=== PATIENT | male | born 1960 ===

== ENCOUNTER 2018-11-09 10:15 | Inpatient (IN) | payer OTHER ==
[2018-11-09 10:19] VITALS: BMI 29.0
[2018-11-09 11:19] LABS: BASO # 0.03 K/mm3 (0.0-2.0); BASO % 0.4 % (0.0-3.0); EOS # 0.5 (0.0-0.7); EOS % 6.6 % (1.5-5.0); GRAN # 4.05 (1.4-6.5); GRAN % 52.8 % (50.0-68.0); HEMOGLOBIN 12.6 g/dL (14.0-18.0); LYMPH # 2.4 (1.2-3.4); LYMPH % 31.6 % (22.0-35.0); MEAN CELL VOLUME 90.8 fl (80.0-105.0); MEAN CORPUSCULAR HEMOGLOBIN 30.5 pg (25.0-35.0); MEAN CORPUSCULAR HGB CONC 33.6 g/dl (31.0-37.0); MEAN PLATELET VOLUME 10.1 fl (7.0-11.0); MONO # 0.7 (0.1-0.6); MONO % 8.6 % (1.0-6.0); RBC 4.13 10^6/uL (3.5-6.1); RED CELL DISTRIBUTION WIDTH 12.8 % (11.5-14.5); WHITE BLOOD COUNT 7.7 10^3/uL (4.5-11.0)
--- NOTE | 2018-11-09 11:20 | ED PDOC ---
Arrival/HPI - General Chief Complaint: Chest Pain Time Seen by Provider: 11/09/18 10:32 Historian: Patient - History of Present Illness Narrative History of Present Illness (Text): 11/09/18 10:24 A 58 year old male, whose past medical history includes diabetes, hypertension, benign brain mass, and hyperlipidemia, presents to the emergency department complaining of chest pain for the past day. Patient describes pain as a squeez ing pressure located in left side of his chest that started last night at 7 pm. Patient states pain has improved since then but is still present. Patient reports associated productive cough with white sputum starting yesterday and states he been experiencing dyspnea on exertion for the past few months. Patient also reports he does not take aspirin and has never had pain like this before. Patient notes he has not taken any medication for pain. Patient reports his primary care doctor is located in [place] and admits seeing a meterman but states it was years ago. Admits to daily marijuana use but none today. Patient denies any fever, chills, diaphoresis, abdominal pain, nausea, vomiting, numbness, weakness, paresthesia, hemoptysis, or any other complaints. Time/Duration: Other (last night) Symptom Onset: Gradual Symptom Course: Unchanged Activities at Onset: Light Context: Home Past Medical History - Provider Review Nursing Documentation Reviewed: Yes - Infectious Disease Hx of Infectious Diseases: None - Cardiac Hx Hypertension: Yes - Endocrine/Metabolic Hx Diabetes Mellitus Type 2: Yes - Gastrointestinal Hx Gastroesophageal Reflux: Yes - Genitourinary/Gynecological Hx Prostate Problems: Yes - Psychiatric Hx Depression: Yes Hx Substance Use: Yes - Surgical History Hx Appendectomy: Yes Hx Orthopedic Surgery: Yes - Anesthesia Hx Anesthesia: Yes Hx Anesthesia Reactions: No Hx Malignant Hyperthermia: No Family/Social History - Physician Review Nursing Documentation Reviewed: Yes Family/Social History: No Known Family HX Smoking Status: Never Smoked Hx Alcohol Use: No Hx Substance Use: Yes Substance used: marijuana Allergies/Home Meds Allergies/Adverse Reactions: Allergies No Known Allergies Allergy (Verified 11/09/18 10:19) Home Medications: Home Meds Medication Instructions Recorded Confirmed Amitriptyline [Elavil] 25 mg PO HS 11/09/18 11/09/18 Lisinopril [Zestril] 40 mg PO DAILY 11/09/18 11/09/18 Omeprazole 40 mg PO DAILY 11/09/18 11/09/18 Rosuvastatin Calcium [Crestor] 10 mg PO HS 11/09/18 11/09/18 Tadalafil [Cialis] 5 mg PO PRN PRN 11/09/18 11/09/18 Tamsulosin [Flomax] 0.4 mg PO DAILY 11/09/18 11/09/18 metFORMIN [glucOPHAGE] 850 mg PO BID 11/09/18 11/09/18 Review of Systems - Physician Review All systems were reviewed & negative as marked: Yes - Review of Systems Constitutional: absent: Fevers, Night Sweats Eyes: Normal ENT: Normal. absent: Sore Throat, Sinus Congestion Respiratory: Cough (productive), Sputum (White sputum). absent: Other (no hemoptysis) Cardiovascular: Chest Pain, GREGG. absent: Palpitations Gastrointestinal: Normal. absent: Abdominal Pain, Nausea, Vomiting Genitourinary Male: Normal Musculoskeletal: Normal. absent: Back Pain, Neck Pain Skin: Normal. absent: Rash Neurological: Normal. absent: Headache, Dizziness, Other (no numbness, no paresthesia) Endocrine: Normal Hemo/Lymphatic: Normal Psychiatric: Normal Physical Exam Vital Signs Reviewed: Yes Vital Signs Temp Pulse Resp BP Pulse Ox 11/09/18 10:16 99.1 F 81 18 138/85 95 Temperature: Afebrile Blood Pressure: Normal Pulse: Regular Respiratory Rate: Normal Appearance: Positive for: Well-Appearing Pain Distress: None Mental Status: Positive for: Alert and Oriented X 3 - Systems Exam Head: Present: Atraumatic, Normocephalic Pupils: Present: PERRL Extroacular Muscles: Present: EOMI Conjunctiva: Present: Normal Mouth: Present: Moist Mucous Membranes Nose (External): Present: Atraumatic Neck: Present: Normal Range of Motion. No: Meningeal Signs, MIDLINE TENDERNESS, Paraspinal Tenderness Respiratory/Chest: Present: Clear to Auscultation, Good Air Exchange. No: Respiratory Distress, Accessory Muscle Use Cardiovascular: Present: Regular Rate and Rhythm, Normal S1, S2, Peripheal Pulses Present. No: Murmurs Abdomen: Present: Normal Bowel Sounds. No: Tenderness, Distention, Peritoneal Signs, Rebound, Guarding Back: Present: Normal Inspection. No: CVA Tenderness, Paraspinal Tenderness Upper Extremity: Present: Normal Inspection, Normal ROM, NORMAL PULSES, Neurovascularly Intact, Capillary Refill < 2s. No: Cyanosis, Edema Lower Extremity: Present: Normal Inspection, NORMAL PULSES, Normal ROM, Neurovascularly Intact, Capillary Refill < 2 s. No: Edema, CALF TENDERNESS Neurological: Present: GCS=15, CN II-XII Intact, Speech Normal, Motor Func Grossly Intact, Normal Sensory Function, Gait Normal Skin: Present: Warm, Dry, Normal Color. No: Rashes Psychiatric: Present: Alert, Oriented x 3, Normal Insight, Normal Concentration, Normal Affect, Normal Mood Medical Decision Making ED Course and Treatment: 11/09/18 10:29 Impression: 58 year old presenting to the emergency room complaining of chest pain. Plan: -- EKG -- Labs -- UDS -- Chest X-ray -- Aspirin -- Reassess and disposition Prior Visits: Notes and results from previous visits were reviewed. Progress Notes: 11:30 Labwork unremarkable, including negative troponin UDS positive for cannabis CXR shows no active disease 11:45 Plan was discussed with patient for admission. Patient understands need for admission and agrees with plan of care. Given opportunity to ask questions. Vital signs stable at this time, patient resting comfortably in stretcher. 12:[address] Baer who accepted patient for inpatient observation with diagnosis of chest pain to rule out ACS. Requests cardiology consult. - Lab Interpretations Lab Results: 11/09/18 10:45 11/09/18 10:45 Lab Results 11/09/18 10:45: Sodium 140, Potassium 4.0, Chloride 102, Carbon Dioxide 29, Anion Gap 13, BUN 14, Creatinine 0.6 L, Est GFR ( Amer) > 60, Est GFR (Non-Af Amer) > 60, Random Glucose 155 H, Calcium 9.7, Magnesium 1.8, Total Bilirubin 0.5, AST 40, ALT 63 H, Alkaline Phosphatase 105, Lactate Dehydrogenase 569, Total Creatine Kinase 116, Troponin I < 0.01, NT-Pro-B Natriuret Pep 12.1, Total Protein 7.7, Albumin 4.6, Globulin 3.1, Albumin/Globulin Ratio 1.5 11/09/18 10:45: PT 12.2, INR 1.06, APTT 30.6 11/09/18 10:45: WBC 7.7, RBC 4.13, Hgb 12.6 L, Hct 37.5 L, MCV 90.8, MCH 30.5, MCHC 33.6, RDW 12.8, Plt Count 226, MPV 10.1, Gran % 52.8, Lymph % (Auto) 31.6, [place] % (Auto) 8.6 H, Eos % (Auto) 6.6 H, Baso % (Auto) 0.4, Gran # 4.05, Lymph # (Auto) 2.4, [place] # (Auto) 0.7 H, Eos # (Auto) 0.5, Baso # (Auto) 0.03 I have reviewed the lab results: Yes - RAD Interpretation Narrative RAD Interpretations (Text): CXR: No active disease Radiology Orders: 11/09/18 10:30 CHEST PORTABLE [RAD] Stat Act English Tutor: Radiologist - EKG Interpretation EKG Interpretation (Text): Rate 80; NSR; Normal Intervals; No STEMI or other signs of acute ischemia Interpreted by ED Physician: Yes Type: 12 lead EKG Comparison: No previous EKG avail. - Medication Orders Current Medication Orders: Discontinued Medications Aspirin (Aspirin) 325 mg PO STAT STA Stop: 11/09/18 10:30 Last Admin: 11/09/18 10:45 Dose: 325 mg - Saidaibe Statement The provider has reviewed the documentation as recorded by the Robbin Nayak All medical record entries made by the Robbin were at my direction and personally dictated by me. I have reviewed the chart and agree that the record accurately reflects my personal performance of the history, physical exam, medical decision making, and the department course for this patient. I have also personally directed, reviewed, and agree with the discharge instructions and disposition. Disposition/Present on Arrival - Present on Arrival Any Indicators Present on Arrival: No History of DVT/PE: No History of Uncontrolled Diabetes: No Urinary Catheter: No History of Decub. Ulcer: No History Surgical Site Infection Following: None - Disposition Have Diagnosis and Disposition been Completed?: Yes Diagnosis: Chest pain Disposition: HOSPITALIZED Disposition Time: 12:00 Patient Plan: Admission Patient Problems: Current Active Problems Problem Status Onset Chest pain Acute Condition: STABLE
[2018-11-09 11:21] LABS: ALB/GLOB RATIO 1.5 (1.1-1.8); ALBUMIN 4.6 g/dL (3.0-4.8); ALT/SGPT 63 U/L (7-56); AST/SGOT 40 U/L (17-59); BLOOD UREA NITROGEN 14 mg/dL (7-21); CALCIUM 9.7 mg/dL (8.4-10.5); GFR NON-AFRICAN AMERICAN > 60
[2018-11-09 11:23] LABS: INR 1.06; PARTIAL THROMBOPLASTIN TIME 30.6 Seconds (25.1-36.5); PROTHROMBIN TIME 12.2 SECONDS (9.4-12.5)
[2018-11-09 11:32] LABS: B-TYPE NATRIURETIC PEPTIDE 12.1 pg/mL (0-450); TROPONIN I < 0.01 ng/mL
--- NOTE | 2018-11-09 11:35 | RAD ---
Date of service: 11/09/2018 HISTORY: cough, chest pain COMPARISON: No prior. FINDINGS: LUNGS: No active pulmonary disease. PLEURA: No significant pleural effusion identified, no pneumothorax apparent. CARDIOVASCULAR: No aortic atherosclerotic calcification present. Normal cardiac size. No pulmonary vascular congestion. OSSEOUS STRUCTURES: No significant abnormalities. VISUALIZED UPPER ABDOMEN: Normal. OTHER FINDINGS: None. IMPRESSION: No active disease.
[2018-11-09 12:30] LABS: URINE BILIRUBIN NEGATIVE (NEGATIVE); URINE BLOOD MODERATE (NEGATIVE); URINE GLUCOSE (UA) NEGATIVE (NEGATIVE); URINE LEUKOCYTE ESTERASE NEGATIVE Leu/uL (NEGATIVE); URINE PROTEIN 100 mg/dL (<30 mg/dL)
[2018-11-09 12:32] LABS: URINE APPEARANCE CLEAR (CLEAR); URINE COLOR YELLOW (YELLOW)
[2018-11-09 12:39] LABS: URINE RBC 15 - 20 /hpf (0-2)
[2018-11-09 12:40] LABS: URINE AMORPHOUS SEDIMENT FEW /hpf; URINE BACTERIA MOD /hpf
[2018-11-09 14:29] LABS: BARBITURATES, UR NEGATIVE (NEGATIVE); BENZODIAZEPINES, UR NEGATIVE (NEGATIVE); OPIATES, UR NEGATIVE (NEGATIVE); PHENCYCLIDINE, UR NEGATIVE (NEGATIVE)
[2018-11-09] MEDS ORDERED: guaiFENesin DM 100 mg-10 mg/5 ml UD PO PRN (14:37)
[2018-11-09] MEDS: Insulin Reg-LOW-Coverage SC SCH ×2 (16:41→22:02)
[2018-11-09] MEDS ORDERED: Pneumococcal 23-Valent Vaccine IM ONE (17:23)
[2018-11-09] MEDS ORDERED: Influenza Vaccine 60 mcg/0.5 mL SYR (4YR UP) IM ONE (17:23)
--- NOTE | 2018-11-09 20:39 | CARD ---
APPROVED REPORT Date of service: 11/09/2018 EKG Measurement Heart [id number] <Conclusion> Normal sinus rhythm Normal ECG
--- NOTE | 2018-11-10 06:27 | CP.PCM.HP ---
<Ayan Carlson - Last Filed: 11/10/18 07:25> History of Present Illness - History of Present Illness History of Present Illness: *Please note this H&P is for 11/09/2018* The patient was seen at approx 1PM on 11/09/2018 PGY-2 medicine H&P for Dr Baer Mr Lucero is a 58 year old male with a PMHx of non-cancerous brain lesion, HTN, HLD, DM2, BPH, GERD, erectile dysfunction, depression who presented with mid- sternal and left-sided chest pain that began at 7pm on 11/08/18 and was constant throughout the night. He said he was able to sleep a few hours overnight. He said he had dinner at 6PM and the pain began 1 hour after eating. He describes the pain as a deep pressure pain. He at first stated his pain as not being similiar to GERD but later stated it was similar to GERD. He stated he's had pain like this in the past and was seen by a java software developer about 4 years ago. Additionally, he also endorsed a dry cough that has been present for about a month. 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, recently moved to [place] from [place] FamHx: denies PMD: Dr Jerry Quigley ([place]) [facility]acy: [facility] [address] ([place]) Present on Admission - Present on Admission Any Indicators Present on Admission: No Review of Systems - Review of Systems All systems: reviewed and no additional remarkable complaints except (as stated in the HPI) Past Patient History - Infectious Disease Hx of Infectious Diseases: None - Past Social History Smoking Status: Never Smoked - CARDIAC Hx Cardiac Disorders: Yes Hx Hypercholesterolemia: Yes Hx Hypertension: Yes - PULMONARY Hx Respiratory Disorders: Yes (sob for "few months" climbing stairs) - NEUROLOGICAL Hx Neurological Disorder: No - HEENT Hx HEENT Problems: No - RENAL Hx Chronic Kidney Disease: No - ENDOCRINE/METABOLIC Hx Endocrine Disorders: Yes Hx Diabetes Mellitus Type 2: Yes - HEMATOLOGICAL/ONCOLOGICAL Hx Blood Disorders: No - INTEGUMENTARY Hx Dermatological Problems: Yes Other/Comment: healed surgical scar outer right ankle - MUSCULOSKELETAL/RHEUMATOLOGICAL Hx Falls: Yes (1995 fx r ankle) - GASTROINTESTINAL Hx Gastrointestinal Disorders: Yes Hx Gastroesophageal Reflux: Yes - GENITOURINARY/GYNECOLOGICAL Hx Genitourinary Disorders: Yes Hx Prostate Problems: Yes (bph) Other/Comment: pt c/o about last 3 months, slight burning on urination, and feeling bladder not emptying, was prescribed flomax by pmd in [place] and to f/u with urologist, but between moving to [place] and the holidays had not followed up yet - PSYCHIATRIC Hx Substance Use: Yes (smokes marijuana 2x's a day) - SURGICAL HISTORY Hx Surgeries: Yes Hx Appendectomy: Yes Hx Orthopedic Surgery: Yes (r ankle) Other/Comment: pt fell out 2nd story window trying to fix a closeline 1995, had hairline fx and has metal ciara and 10 screws in r ankle - ANESTHESIA Hx Anesthesia: Yes Hx Anesthesia Reactions: No Hx Malignant Hyperthermia: No Meds Allergies/Adverse Reactions: Allergies Allergy/AdvReac Type Severity Reaction Status Date / Time No Known Allergies Allergy Verified 11/09/18 10:19 Physical Exam - Constitutional Appears: Well, Non-toxic, No Acute Distress - Head Exam Head Exam: ATRAUMATIC, NORMAL INSPECTION Additional comments: 2cm resolving linear laceration on frontal scalp suffered at work by hitting a railing - Eye Exam Eye Exam: EOMI, Normal appearance, PERRL. absent: Scleral icterus - ENT Exam ENT Exam: Mucous Membranes Moist - Respiratory Exam Respiratory Exam: Clear to Auscultation Bilateral, Wheezes, NORMAL BREATHING PATTERN. absent: Rales, Rhonchi Additional comments: expiratory wheezing - Cardiovascular Exam Cardiovascular Exam: REGULAR RHYTHM, +S1, +S2. absent: JVD, Systolic Murmur - GI/Abdominal Exam GI & Abdominal Exam: Normal Bowel Sounds, Soft. absent: Distended, Firm, Guarding, Hernia, Tenderness Additional comments: protuberant abdomen - Extremities Exam Extremities exam: Positive for: full ROM, normal capillary refill, normal inspection, pedal pulses present. Negative for: calf tenderness, pedal edema - Neurological Exam Neurological exam: Alert, CN II-XII Intact - Psychiatric Exam Psychiatric exam: Normal Affect, Normal Mood - Skin Skin Exam: Dry, Intact, Normal Color, Warm Results - Vital Signs Recent Vital Signs: Last Vital Signs Temp 97.9 F 11/10/18 05:59 Pulse 80 11/10/18 06:00 Resp 20 11/10/18 05:59 BP 118/72 11/10/18 05:59 Pulse Ox 96 11/10/18 05:59 - Labs Result Diagrams: 11/10/18 06:30 11/10/18 06:30 Labs: Laboratory Results - last 24 hr 11/09/18 11/09/18 11/09/18 10:45 10:45 10:45 WBC 7.7 RBC 4.13 Hgb 12.6 L Hct 37.5 L MCV 90.8 MCH 30.5 MCHC 33.6 RDW 12.8 Plt Count 226 MPV 10.1 Gran % 52.8 Lymph % (Auto) 31.6 Hood % (Auto) 8.6 H Eos % (Auto) 6.6 H Baso % (Auto) 0.4 Gran # 4.05 Lymph # (Auto) 2.4 Hood # (Auto) 0.7 H Eos # (Auto) 0.5 Baso # (Auto) 0.03 PT 12.2 INR 1.06 APTT 30.6 Sodium 140 Potassium 4.0 Chloride 102 Carbon Dioxide 29 Anion Gap 13 BUN 14 Creatinine 0.6 L Est GFR ( Amer) > 60 Est GFR (Non-Af Amer) > 60 POC Glucose (mg/dL) Random Glucose 155 H Calcium 9.7 Magnesium 1.8 Total Bilirubin 0.5 AST 40 ALT 63 H Alkaline Phosphatase 105 Lactate Dehydrogenase 569 Total Creatine Kinase 116 Troponin I < 0.01 NT-Pro-B Natriuret Pep 12.1 Total Protein 7.7 Albumin 4.6 Globulin 3.1 Albumin/Globulin Ratio 1.5 Urine Color Urine Appearance Urine pH Ur Specific [place] Urine Protein Urine Glucose (UA) Urine Ketones Urine Blood Urine Nitrate Urine Bilirubin Urine Urobilinogen Ur Leukocyte Esterase Urine RBC Urine WBC Ur Epithelial Cells Amorphous Sediment Urine Bacteria Urine Opiates Screen Urine Methadone Screen Ur Barbiturates Screen Ur Phencyclidine Scrn Ur Amphetamines Screen U Benzodiazepines Scrn U Oth Cocaine Metabols U Cannabinoids Screen 11/09/18 11/09/18 11/09/18 12:15 13:45 16:18 WBC RBC Hgb Hct MCV MCH MCHC RDW Plt Count MPV Gran % Lymph % (Auto) Hood % (Auto) Eos % (Auto) Baso % (Auto) Gran # Lymph # (Auto) Hood # (Auto) Eos # (Auto) Baso # (Auto) PT INR APTT Sodium Potassium Chloride Carbon Dioxide Anion Gap BUN Creatinine Est GFR ( Amer) Est GFR (Non-Af Amer) POC Glucose (mg/dL) 256 H Random Glucose Calcium Magnesium Total Bilirubin AST ALT Alkaline Phosphatase Lactate Dehydrogenase Total Creatine Kinase Troponin I NT-Pro-B Natriuret Pep Total Protein Albumin Globulin Albumin/Globulin Ratio Urine Color Yellow Urine Appearance Clear Urine pH 6.0 Ur Specific [place] 1.025 Urine Protein 100 H Urine Glucose (UA) Negative Urine Ketones Negative Urine Blood Moderate H Urine Nitrate Negative Urine Bilirubin Negative Urine Urobilinogen 1.0 H Ur Leukocyte Esterase Negative Urine RBC 15 - 20 H Urine WBC 1 - 3 Ur Epithelial Cells None Amorphous Sediment Few Urine Bacteria Mod Urine Opiates Screen Negative Urine Methadone Screen Negative Ur Barbiturates Screen Negative Ur Phencyclidine Scrn Negative Ur Amphetamines Screen Negative U Benzodiazepines Scrn Negative U Oth Cocaine Metabols Negative U Cannabinoids Screen Positive H 11/09/18 11/09/18 11/09/18 16:55 21:31 23:40 WBC RBC Hgb Hct MCV MCH MCHC RDW Plt Count MPV Gran % Lymph % (Auto) Hood % (Auto) Eos % (Auto) Baso % (Auto) Gran # Lymph # (Auto) Hood # (Auto) Eos # (Auto) Baso # (Auto) PT INR APTT Sodium Potassium Chloride Carbon Dioxide Anion Gap BUN Creatinine Est GFR ( Amer) Est GFR (Non-Af Amer) POC Glucose (mg/dL) 110 Random Glucose Calcium Magnesium Total Bilirubin AST ALT Alkaline Phosphatase Lactate Dehydrogenase Total Creatine Kinase Troponin I < 0.01 < 0.01 NT-Pro-B Natriuret Pep Total Protein Albumin Globulin Albumin/Globulin Ratio Urine Color Urine Appearance Urine pH Ur Specific [place] Urine Protein Urine Glucose (UA) Urine Ketones Urine Blood Urine Nitrate Urine Bilirubin Urine Urobilinogen Ur Leukocyte Esterase Urine RBC Urine WBC Ur Epithelial Cells Amorphous Sediment Urine Bacteria Urine Opiates Screen Urine Methadone Screen Ur Barbiturates Screen Ur Phencyclidine Scrn Ur Amphetamines Screen U Benzodiazepines Scrn U Oth Cocaine Metabols U Cannabinoids Screen Assessment & Plan - Assessment and Plan (Free Text) Plan: Mr Lucero is a 58 year old male with a PMHx of non-cancerous brain lesion, HTN, HLD, DM2, BPH, GERD, erectile dysfunction, depression who presented with mid- sternal and left-sided deep pressure-like chest pain that began at 7pm on 11/08/18 and was constant throughout the night: Chest Pain -will need to rule out an acute coronary syndrome; other etiologies include GERD or 1 month long dry cough -consult java software developer, Dr Villa -EKG showed NSR and a regular rate -trops have been negative x3 -probnp was normal -chest xray was normal -f/u ECHO -f/u tsh -protonix 40mg po qd -continue home med aspirin 81mg po qd (patient stated he has not been taking for past 1 month) Hx of Non-Cancerous Brain Lesion -self reported hx and also endorsed by daughter -patient was worked up at a hospital in [place] although patient and daughter unable to recall which hospital -patient stated lesion was discovered 2 years ago -he has had several MRI's to monitor it's size - patient states size has been stable -patient stated he takes a medication as Rx'd by either a neurologist or his PMD - but he's unable to recall which medication * will need to get in touch with daughter to confirm medication name * Daughter Jennifer - [phone] DM2 -accuchecks achs -regular insulin sliding scale -f/u [id number] HTN -BP has be within normal limits -continue home med lisinopril 40mg po qd -f/u lipid panel BPH -continue home med flomax 0.4mg po qd HLD -continue home med lipitor 40mg po hs Cough -Robitussin DM Depression -holding home med amitriptyline 25mg po qd PPX -protonix 40mg po qd -heart healthy diet with mod carb consistent -SCDs Case seen and discussed with Dr Baer <Luis Baer - Last Filed: 11/12/18 23:24> Results - Vital Signs Recent Vital Signs: Last Vital Signs Temp 98.1 F 11/12/18 12:00 Pulse 85 11/12/18 12:00 Resp 20 11/12/18 12:00 BP 120/93 H 11/12/18 12:00 Pulse Ox 96 11/12/18 09:00 - Labs Result Diagrams: 11/12/18 06:30 11/12/18 06:30 Labs: Laboratory Results - last 24 hr 11/12/18 11/12/18 11/12/18 06:30 06:30 07:39 WBC 10.1 RBC 4.25 Hgb 13.0 L Hct 38.3 L MCV 90.1 MCH 30.6 MCHC 33.9 RDW 12.6 Plt Count 255 MPV 9.8 Gran % 64.1 Lymph % (Auto) 27.1 Hood % (Auto) 5.7 Eos % (Auto) 2.8 Baso % (Auto) 0.3 Gran # 6.49 Lymph # (Auto) 2.7 Hood # (Auto) 0.6 Eos # (Auto) 0.3 Baso # (Auto) 0.03 Sodium 139 Potassium 4.1 Chloride 102 Carbon Dioxide 28 Anion Gap 13 BUN 13 Creatinine 0.7 L Est GFR ( Amer) > 60 Est GFR (Non-Af Amer) > 60 POC Glucose (mg/dL) 127 H Random Glucose 146 H Calcium 9.4 Total Bilirubin 0.6 AST 45 ALT 67 H Alkaline Phosphatase 93 Total Protein 7.5 Albumin 4.4 Globulin 3.1 Albumin/Globulin Ratio 1.4 11/12/18 11:27 WBC RBC Hgb Hct MCV MCH MCHC RDW Plt Count MPV Gran % Lymph % (Auto) Hood % (Auto) Eos % (Auto) Baso % (Auto) Gran # Lymph # (Auto) Hood # (Auto) Eos # (Auto) Baso # (Auto) Sodium Potassium Chloride Carbon Dioxide Anion Gap BUN Creatinine Est GFR ( Amer) Est GFR (Non-Af Amer) POC Glucose (mg/dL) 212 H Random Glucose Calcium Total Bilirubin AST ALT Alkaline Phosphatase Total Protein Albumin Globulin Albumin/Globulin Ratio Attending/Attestation - Attestation I have personally seen and examined this patient.: Yes I have fully participated in the care of the patient.: Yes I have reviewed all pertinent clinical information: Yes Notes (Text): 58 y/o M with PMH of HTN, DM, BPH, non-cancerous brain lesion admitted for chest pain. EKG and trop negative will consult cardio get 2D echo start ASA start RISS start lisinopril
[2018-11-10 06:56] LABS: BASO # 0.03 K/mm3 (0.0-2.0); BASO % 0.3 % (0.0-3.0); EOS # 0.5 (0.0-0.7); EOS % 5.1 % (1.5-5.0); GRAN # 6.23 (1.4-6.5); GRAN % 59.3 % (50.0-68.0); HEMOGLOBIN 13.4 g/dL (14.0-18.0); LYMPH # 2.8 (1.2-3.4); LYMPH % 26.4 % (22.0-35.0); MEAN CELL VOLUME 90.3 fl (80.0-105.0); MEAN CORPUSCULAR HEMOGLOBIN 30.9 pg (25.0-35.0); MEAN CORPUSCULAR HGB CONC 34.3 g/dl (31.0-37.0); MONO # 0.9 (0.1-0.6); MONO % 8.9 % (1.0-6.0); RBC 4.33 10^6/uL (3.5-6.1); RED CELL DISTRIBUTION WIDTH 12.7 % (11.5-14.5); WHITE BLOOD COUNT 10.5 10^3/uL (4.5-11.0)
[2018-11-10 07:10] LABS: ALB/GLOB RATIO 1.4 (1.1-1.8); ALBUMIN 4.5 g/dL (3.0-4.8); ALT/SGPT 65 U/L (7-56); AST/SGOT 40 U/L (17-59); BLOOD UREA NITROGEN 12 mg/dL (7-21); CALCIUM 9.6 mg/dL (8.4-10.5); GFR NON-AFRICAN AMERICAN > 60; HDL CHOLESTEROL 31 mg/dL (29-60)
[2018-11-10 07:21] LABS: LDL CHOLESTEROL 74 mg/dL (0-129)
[2018-11-10] MEDS: Insulin Reg-LOW-Coverage SC SCH ×4 (08:00→21:29)
[2018-11-10] MEDS: Pantoprazole 40 mg EC Tab PO SCH (11:26)
--- NOTE | 2018-11-10 14:45 | CARD ---
APPROVED REPORT Date of service: 11/10/2018 EXAM: Two-dimensional and M-mode echocardiogram with Doppler and color Doppler. INDICATION Chest Pain 2D DIMENSIONS Left Atrium (2D)3.5 (1.6-4.0cm)IVSd1.5 (0.7-1.1cm) LVDd3.9 (3.9-5.9cm)PWd1.5 (0.7-1.1cm) LVDs2.6 (2.5-4.0cm)FS (%) 34.3 % LVEF (%)64.1 (>50%) M-Mode DIMENSIONS Aortic Root3.30 (2.2-3.7cm)Aortic Cusp Exc.2.10 (1.5-2.0cm) Aortic Valve AoV Peak Vtzfiqgm624.0cm/Marjorie Peak GR.7mmHg Mitral Valve MV E Blqxcahk30.8cm/sMV A Dwmopddr66.0cm/sE/A ratio0.8 TDI E/Lateral E'0.0E/Medial E'0.0 Tricuspid Valve TR Peak [id number]/sRAP [id number] Peak Gr.21mmHg [id number] LEFT VENTRICLE The left ventricle is normal size. There is mild concentric left ventricular hypertrophy. The left ventricular function is normal. The left ventricular ejection fraction is within the normal range. There is normal LV segmental wall motion. Transmitral Doppler flow pattern is Grade I-abnormal relaxation pattern. RIGHT VENTRICLE The right ventricle is normal size. There is normal right ventricular wall thickness. The right ventricular systolic function is normal. ATRIA The left atrium size is normal. The right atrium size is normal. AORTIC VALVE The aortic valve is not well visualized. No aortic regurgitation is present. There is no aortic valvular stenosis. MITRAL VALVE The mitral valve is normal in structure. There is no mitral valve regurgitation noted. There is no mitral valve stenosis. TRICUSPID VALVE The tricuspid valve is normal in structure. There is trace tricuspid regurgitation. PULMONIC VALVE The pulmonary valve is normal in structure. There is no pulmonic valvular regurgitation. GREAT VESSELS The aortic root is normal in size. PERICARDIAL EFFUSION There is a trace pericardial effusion. <Conclusion> There is mild concentric left ventricular hypertrophy. The left ventricular function is normal. The left ventricular ejection fraction is within the normal range. There is normal LV segmental wall motion. Transmitral Doppler flow pattern is Grade I-abnormal relaxation pattern.
--- NOTE | 2018-11-10 16:25 | CP.PCM.PN ---
<Juan Carlos Stevenson - Last Filed: 11/10/18 16:44> Subjective - Date & Time of Evaluation Date of Evaluation: 11/10/18 Time of Evaluation: 07:30 - Subjective Subjective: Medicine Progress Note for Hospitalist Service, Dr. Buffy Stevenson, DO PGY-1 Pt seen and examined at bedside this am. Denies any acute complaints, states chest pain is improved compared to yesterday. No acute events reported overnight by staff. Denies headache, dizziness, sob, n/v/d/c, abd pain, urinary complaints, or other symptoms. Objective - Vital Signs/Intake and Output Vital Signs (last 24 hours): Temp Pulse Resp BP Pulse Ox 98.1 F 76 18 129/86 96 11/10/18 12:00 11/10/18 12:00 11/10/18 12:00 11/10/18 12:00 11/10/18 05:59 Intake and Output: 11/10/18 11/10/18 06:59 18:59 Intake Total 480 Balance 480 - Medications Medications: Current Medications Aspirin (Aspirin Chewable) 81 mg PO DAILY [facility] Last Admin: 11/10/18 11:26 Dose: 81 mg Atorvastatin Calcium (Lipitor) 40 mg PO HS [facility] Last Admin: 11/09/18 21:30 Dose: 40 mg Clopidogrel Bisulfate (Plavix) 75 mg PO DAILY [facility] Last Admin: 11/10/18 11:26 Dose: 75 mg Guaifenesin/Dextromethorphan (Robitussin Dm) 5 ml PO Q4H PRN PRN Reason: Cough Insulin Human Regular (Humulin R Low) 0 units SC [facility]; Protocol Last Admin: 11/10/18 12:15 Dose: 3 unit Lisinopril (Zestril) 40 mg PO DAILY [facility] Last Admin: 11/10/18 11:26 Dose: 40 mg Pantoprazole Sodium (Protonix Ec Tab) 40 mg PO DAILY [facility] Last Admin: 11/10/18 11:26 Dose: 40 mg Tamsulosin HCl (Flomax) 0.4 mg PO DAILY [facility] Last Admin: 11/10/18 11:26 Dose: 0.4 mg - Labs Labs: 11/10/18 06:30 11/10/18 06:30 PT 12.2 SECONDS (9.4-12.5) 11/09/18 10:45 INR 1.06 11/09/18 10:45 APTT 30.6 Seconds (25.1-36.5) 11/09/18 10:45 - Constitutional Appears: Non-toxic, No Acute Distress - Head Exam Head Exam: ATRAUMATIC, NORMOCEPHALIC - Eye Exam Eye Exam: EOMI, Normal appearance, PERRL - ENT Exam ENT Exam: Mucous Membranes Moist - Respiratory Exam Respiratory Exam: Clear to Ausculation Bilateral, NORMAL BREATHING PATTERN. absent: Rales, Rhonchi, Wheezes - Cardiovascular Exam Cardiovascular Exam: REGULAR RHYTHM, +S1, +S2. absent: Gallop, Rubs, Murmur - Extremities Exam Extremities Exam: Full ROM, Normal Capillary Refill, Normal Inspection. absent: Calf Tenderness, Pedal Edema - Neurological Exam Neurological Exam: Alert, Awake, CN II-XII Intact, Normal Gait, Oriented x3 - Psychiatric Exam Psychiatric exam: Normal Affect, Normal Mood - Skin Skin Exam: Dry, Intact, Normal Color, Warm Assessment and Plan - Assessment and Plan (Free Text) Assessment: 58 year old male with a PMHx of non-cancerous brain lesion, HTN, HLD, DM2, BPH, GERD, erectile dysfunction, depression who presented with mid-sternal and left- sided deep pressure-like chest pain that began at 7pm on 11/08/18 and was constant throughout the night. Plan: Chest Pain -R/o; other etiologies include GERD or 1 month long dry cough -Dr Villa consulted (Cardio), recs appreciated -EKG: NSR, no acute St-t wave changes noted -Trops neg x3 -BNP wnl -CXR wnl -Echo 11/10: mild concentric LVH, EF 64.1% -TSH wnl -Protonix 40mg po qd -C/w home med aspirin 81mg po qd (patient stated he has not been taking for past 1 month) Hx of Non-Cancerous Brain Lesion -Self reported hx and also endorsed by daughter -Patient was worked up at a hospital in [place] although patient and daughter unable to recall which hospital -Patient stated lesion was discovered 2 years ago -He has had several MRI's to monitor it's size - patient states size has been stable -patient stated he takes a medication as Rx'd by either a neurologist or his PMD - but he's unable to recall which medication Daughter Jennifer - [phone] -Confirmed medication with [facility] in [place], supposed to be on prescription Cabergoline 0.5 mg (1/2 tab twice weekly). Pt's daughter stated that pt did not refill medication as instructed outpatient and has not taken the medication for over 1 month. Medication not on formulary in hospital, recommend restarting medication after hospital discharge. DM2 -Accuchecks achs -Eegular insulin sliding scale -A1c 7.8 HTN -C/w lisinopril 40 mg PO daily BPH -C/w home med flomax 0.4mg po qd HLD -C/w home med lipitor 40mg po hs -TG 176, Chol 127, LDL 74, HDL 31 Cough -Robitussin DM Depression -Cont to hold home med amitriptyline 25mg po qd PPX -Protonix 40mg po qd -HHD -SCDs Pt seen, examined with, and plan discussed with Dr. Baer, attending physician. Juan Carlos Stevenson DO PGY-1, [employer] Pager #[phone] <Luis Baer - Last Filed: 11/12/18 23:20> Objective - Vital Signs/Intake and Output Vital Signs (last 24 hours): Temp Pulse Resp BP Pulse Ox 98.1 F 85 20 120/93 H 96 11/12/18 12:00 11/12/18 12:00 11/12/18 12:00 11/12/18 12:00 11/12/18 09:00 - Labs Labs: 11/12/18 06:30 11/12/18 06:30 PT 12.2 SECONDS (9.4-12.5) 11/09/18 10:45 INR 1.06 11/09/18 10:45 APTT 30.6 Seconds (25.1-36.5) 11/09/18 10:45 Attending/Attestation - Attestation I have personally seen and examined this patient.: Yes I have fully participated in the care of the patient.: Yes I have reviewed all pertinent clinical information, including history, physical exam and plan: Yes Notes (Text): 58 y/o M with PMH of HTN, DM, BPH, non-cancerous brain lesion admitted for chest pain. EKG and trop negative Echo: EF 64% awaiting cardio eval c/w RISS c/w lisinopril c/w ASA
--- NOTE | 2018-11-10 18:56 | CARD ---
APPROVED REPORT Date of service: 11/10/2018 EKG Measurement Heart [id number] <Conclusion> Normal sinus rhythm Normal ECG
--- NOTE | 2018-11-10 19:31 | CON ---
DATE: 11/10/2018 CARDIOLOGY CONSULTATION REASON FOR CONSULTATION: Chest pain. HISTORY OF PRESENT ILLNESS: The patient is 58 years old male, who has a history of longstanding diabetes mellitus and history of hypertension. He has a strong family history of heart disease, his father was diagnosed with coronary artery disease in the late 50s, and the patient presents because of typical retrosternal chest pain. 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 The patient did not seek any medical attention. Following that, denies any dizziness or syncope at that time, and denies any other sequelae for his head trauma. SOCIAL HISTORY: The patient smokes weed. 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 MEDICATIONS: Aspirin 81 mg once a day, Flomax 0.4 mg once a day, Lipitor 40 mg once a day, Zestril 40 mg once a day, Robitussin 5 mL every 4 hours p.r.n. for cough. PAST MEDICAL HISTORY: Longstanding hypertension and diabetes mellitus. PHYSICAL EXAMINATION: GENERAL: The patient is a middle-aged male, who does not appear to be in any distress. VITAL SIGNS: Blood pressure 118/72, heart rate 83, temperature 97.9, respirations 20. HEENT: Abrasion is noted on the top of the scalp. NECK: No JVD. CHEST: Clear. HEART: Sounds regular. ABDOMEN: Soft. EXTREMITIES: No edema. LABORATORY DATA: Today's hemoglobin and hematocrit are 16.4 and 39.1, white count and platelet count are within normal limits. SMA-7: Sodium 139, potassium 3.8, chloride 102, CO2 of 28, glucose 120, BUN 12, creatinine 0.6. Three sets of troponins are negative. Triglycerides elevated at 176. Total cholesterol is below normal at 127. EKG revealed normal sinus rhythm at a rate of 58. Chest x-ray was unremarkable except for prominent bronchovascular markings. Urine drug screen is positive for cannabinoids. PT/PTT and INR are within normal limits. ASSESSMENT: 1. Chest pain, myocardial infarction is ruled out. 2. Multiple coronary artery disease risk factors including longstanding hypertension, diabetes mellitus and a strong family history of coronary artery disease. 3. Cannabinoid abuse. RECOMMENDATIONS: Continue aspirin 81 mg once a day, Lipitor 40 mg once a day, Zestril 40 mg once a day. Start Plavix 75 mg once a day. Cardiac catheterization was recommended. The procedure's risks were explained to the patient, who understood them and agreed for the procedure, and the patient is scheduled for 09:00 a.m. tomorrow morning at [facility]. Douglas Villa MD
[2018-11-11 06:44] LABS: BASO # 0.04 K/mm3 (0.0-2.0); BASO % 0.4 % (0.0-3.0); EOS # 0.4 (0.0-0.7); EOS % 3.9 % (1.5-5.0); GRAN # 6.21 (1.4-6.5); GRAN % 59.7 % (50.0-68.0); HEMOGLOBIN 13.3 g/dL (14.0-18.0); LYMPH # 3.1 (1.2-3.4); LYMPH % 29.5 % (22.0-35.0); MEAN CELL VOLUME 90.4 fl (80.0-105.0); MEAN CORPUSCULAR HEMOGLOBIN 30.5 pg (25.0-35.0); MEAN CORPUSCULAR HGB CONC 33.8 g/dl (31.0-37.0); MEAN PLATELET VOLUME 10.3 fl (7.0-11.0); MONO # 0.7 (0.1-0.6); MONO % 6.5 % (1.0-6.0); RBC 4.36 10^6/uL (3.5-6.1); RED CELL DISTRIBUTION WIDTH 12.5 % (11.5-14.5); WHITE BLOOD COUNT 10.4 10^3/uL (4.5-11.0)
[2018-11-11 06:56] LABS: ALB/GLOB RATIO 1.4 (1.1-1.8); ALBUMIN 4.5 g/dL (3.0-4.8); ALT/SGPT 74 U/L (7-56); AST/SGOT 37 U/L (17-59); BLOOD UREA NITROGEN 15 mg/dL (7-21); CALCIUM 9.6 mg/dL (8.4-10.5); GFR NON-AFRICAN AMERICAN > 60
[2018-11-11] MEDS ORDERED: Iohexol 350mgl/ml 50 ML ONE (08:02)
[2018-11-11] MEDS ORDERED: Iohexol 350 MG/100 ML VIAL ONE (08:02)
[2018-11-11] MEDS ORDERED: Lidocaine 2% Inj (20ml) ONE (08:02)
[2018-11-11] MEDS ORDERED: Nitroglycerin 50mg in D5W 50 MG/250 ML BOTTLE IV ONE (08:02)
[2018-11-11] MEDS ORDERED: Midazolam 2 MG/2 ML VIAL ONE (09:14)
[2018-11-11] MEDS ORDERED: Sodium Chloride 0.9% 1,000 ML IV SCH (10:15)
[2018-11-11] MEDS: Pantoprazole 40 mg EC Tab PO SCH (10:40)
[2018-11-11] MEDS: Insulin Reg-LOW-Coverage SC SCH ×4 (10:42→21:52)
--- NOTE | 2018-11-11 13:35 | CARDCATH ---
PROCEDURE DATE: 11/11/2018 PROCEDURES: 1. Percutaneous transluminal coronary angioplasty and stent of right coronary artery. HISTORY The patient is a 58-year-old male who presents with symptoms consistent with unstable angina. He suffers from a strong family history of CAD, diabetes mellitus, hypercholesterolemia. Dr. Villa did a catheterization which revealed a 70-80% stenoses in the mid to distal RCA. I was asked to perform angioplasty of the RCA. The right femoral artery sheath was in place. The patient was started on intravenous Angiomax. On the fluoroscopic guide, the angiogram revealed a right dominant circulation. The RCA revealed intimal irregularities and calcification with 70-80% stenoses in the mid to distal RCA prior to the takeoff of the PDA. The guiding catheter was placed in the ostium of the RCA. An 0.014 ATW wire was used to cross the critical lesion. Using a guideliner for additional support, a 3.5 x 8 mm drug-eluting stent was placed and deployed in the critical lesion. The stent was deployed at 14-15 atmospheres of pressure. After balloon deflation and removal, repeat coronary arteriography revealed an excellent result with no residual stenosis and HOMERO III flow. Angio-Seal was used to close the femoral artery site. In summary, the procedure was successful for PTCA and stent of a critically stenosed mid to distal RCA stenoses. Coronary angiogram revealed a 70-80% stenoses in the in the RCA. Given these findings, the patient will need to remain on aspirin indefinitely and Plavix for at least a year. The PRU was performed with the results pending to see whether the patient is reactive to Plavix. He will need to undergo a cardiac risk reduction program given the presence of diffuse atherosclerosis. Sohail Deleon MD
--- NOTE | 2018-11-11 14:00 | CARDCATH ---
PROCEDURE DATE: 11/11/2018 SUBJECTIVE: The patient is a 58-year-old male who has multiple coronary artery disease risk factors including longstanding diabetes mellitus and hypertension beside a strong family history, presents because of typical retrosternal chest pain, cardiac catheterization with the possible intervention was recommended. The procedures and its risks was explained to the patient and understood and agreed for the procedure. PROCEDURE: After local infiltration with 1% lidocaine, a 6-Cameroonian sheath was placed in the right femoral artery. Left and right coronary angiography were performed with 6-Cameroonian JL4 and JR4 diagnostic catheters. Left ventriculogram was performed with a 6-Cameroonian pigtail catheter. The patient tolerated the procedure well without any complication. ANGIOGRAPHIC FINDINGS: Selective injection of the left coronary artery revealed left main to be a normal vessel. Left main trifurcated into a medium-sized LAD, medium-sized circumflex artery, and medium-sized ramus. The proximal and mid LAD segments were calcified. The rest of the right coronary artery circulation was angiographically unremarkable. Selective injection of the right coronary artery revealed a medium-sized dominant vessel that has significant calcification in its middle segment followed by an eccentric 70% stenosis in its distal segment. A left ventriculogram performed in the AMBROCIO projection revealed mild anterior wall hypokinesis, overall ejection fraction was estimated at 55%. Right iliofemoral angiography was performed and the arterial axis was just above the common femoral bifurcation. CONCLUSION: 1. Unstable angina. 2. Eccentric 70% stenosis with distal RCA in a calcific right coronary artery. PLAN: The case was discussed with Dr. Sohail Deleon, who will proceed with PCI to the distal RCA after discussing the case with the patient, who consented to the procedure. Douglas Villa MD
--- NOTE | 2018-11-11 14:59 | CP.PCM.PN ---
<Juan Carlos Stevenson - Last Filed: 11/11/18 15:05> Subjective - Date & Time of Evaluation Date of Evaluation: 11/11/18 Time of Evaluation: 07:25 - Subjective Subjective: Medicine Progress Note for Hospitalist Service, Dr. May Stevenson, DO PGY-1 Pt seen and examined at bedside this am. States he feels well, states chest pain has resolved. No acute events reported overnight by staff. Denies headache, dizziness, fever, chills, sob, n/v/d/c, abd pain, urinary complaints, or other symptoms. Objective - Vital Signs/Intake and Output Vital Signs (last 24 hours): Temp Pulse Resp BP Pulse Ox 98.4 F 70 18 117/70 94 L 11/11/18 11:56 11/11/18 13:44 11/11/18 12:45 11/11/18 12:45 11/11/18 06:00 Intake and Output: 11/11/18 11/11/18 06:59 18:59 Intake Total 240 0 Output Total 100 Balance 240 -100 - Medications Medications: Current Medications Aspirin (Aspirin Chewable) 81 mg PO DAILY [facility] Last Admin: 11/11/18 10:40 Dose: Not Given Aspirin (Ecotrin) 81 mg PO DAILY [facility] Atorvastatin Calcium (Lipitor) 40 mg PO HS [facility] Last Admin: 11/10/18 21:21 Dose: 40 mg Guaifenesin/Dextromethorphan (Robitussin Dm) 5 ml PO Q4H PRN PRN Reason: Cough Sodium Chloride (Sodium Chloride 0.9%) 1,000 mls @ 100 mls/hr IV .Q10H [facility] Stop: 11/11/18 16:00 Last Admin: 11/11/18 10:33 Dose: 100 mls/hr Insulin Human Regular (Humulin R Low) 0 units SC [facility]; Protocol Last Admin: 11/11/18 10:42 Dose: Not Given Lisinopril (Zestril) 40 mg PO DAILY [facility] Last Admin: 11/11/18 10:40 Dose: 40 mg Pantoprazole Sodium (Protonix Ec Tab) 40 mg PO DAILY [facility] Last Admin: 11/11/18 10:40 Dose: 40 mg Prasugrel (Effient) 10 mg PO DAILY [facility] Tamsulosin HCl (Flomax) 0.4 mg PO DAILY [facility] Last Admin: 11/11/18 10:40 Dose: 0.4 mg - Labs Labs: 11/11/18 06:00 11/11/18 06:00 PT 12.2 SECONDS (9.4-12.5) 11/09/18 10:45 INR 1.06 11/09/18 10:45 APTT 30.6 Seconds (25.1-36.5) 11/09/18 10:45 - Constitutional Appears: Non-toxic, No Acute Distress - Head Exam Head Exam: ATRAUMATIC, NORMOCEPHALIC - Eye Exam Eye Exam: EOMI, Normal appearance, PERRL - ENT Exam ENT Exam: Mucous Membranes Moist - Respiratory Exam Respiratory Exam: Clear to Ausculation Bilateral, NORMAL BREATHING PATTERN. absent: Rales, Rhonchi, Wheezes - Cardiovascular Exam Cardiovascular Exam: REGULAR RHYTHM, +S1, +S2. absent: Gallop, Rubs, Murmur - GI/Abdominal Exam GI & Abdominal Exam: Soft, Normal Bowel Sounds. absent: Distended, Guarding, Tenderness, Organomegaly - Extremities Exam Extremities Exam: Full ROM, Normal Capillary Refill, Normal Inspection. absent: Calf Tenderness, Pedal Edema - Neurological Exam Neurological Exam: Alert, Awake, CN II-XII Intact, Oriented x3 - Skin Skin Exam: Dry, Intact, Normal Color, Warm Assessment and Plan - Assessment and Plan (Free Text) Assessment: 58 year old male with a PMHx of non-cancerous brain lesion, HTN, HLD, DM2, BPH, GERD, erectile dysfunction, depression who presented with mid-sternal and left- sided deep pressure-like chest pain that began at 7pm on 11/08/18 and was constant throughout the night. Plan: Chest Pain -R/o; other etiologies include GERD or 1 month long dry cough -Dr Villa consulted (Cardio), recs appreciated -S/p cardiac cath today. Findings: 70-80% stenosis in RCA. S/p PTCA and stent placement. Pt will need to remain on aspirin indefinitely and Plavix indefinitely for at least a year. Pt resistant to Plavix, currently on Effient. Will continue to monitor post-procedure.Juan Carlos -EKG: NSR, no acute St-t wave changes noted -Trops neg x3 -BNP wnl -CXR wnl -Echo 11/10: mild concentric LVH, EF 64.1% -TSH wnl -Protonix 40mg po qd -C/w home med aspirin 81mg po qd (patient stated he has not been taking for past 1 month) Hx of Non-Cancerous Brain Lesion -Self reported hx and also endorsed by daughter -Patient was worked up at a hospital in [place] although patient and daughter unable to recall which hospital -Patient stated lesion was discovered 2 years ago -He has had several MRI's to monitor it's size - patient states size has been stable -patient stated he takes a medication as Rx'd by either a neurologist or his PMD - but he's unable to recall which medication Daughter Jennifer - [phone] -Confirmed medication with [facility] in [place], supposed to be on prescription Cabergoline 0.5 mg (1/2 tab twice weekly). Pt's daughter stated that pt did not refill medication as instructed outpatient and has not taken the medication for over 1 month. Medication not on formulary in hospital, recommend restarting medication after hospital discharge. DM2 -Accuchecks achs -Eegular insulin sliding scale -A1c 7.8 HTN -C/w lisinopril 40 mg PO daily BPH -C/w home med flomax 0.4mg po qd HLD -C/w home med lipitor 40mg po hs -TG 176, Chol 127, LDL 74, HDL 31 Cough -Robitussin DM Depression -Cont to hold home med amitriptyline 25mg po qd PPX -Protonix 40mg po qd -HHD -SCDs Pt seen, examined with, and plan discussed with Dr. Olvera, attending physician. Juan Carlos Stevenson, PGY-1, [employer] Pager #[phone] <Marisa Olvera - Last Filed: 11/12/18 08:00> Objective - Vital Signs/Intake and Output Vital Signs (last 24 hours): Temp Pulse Resp BP Pulse Ox 97.4 F L 95 H 19 149/90 94 L 11/12/18 02:00 11/12/18 02:00 11/12/18 02:00 11/12/18 02:00 11/11/18 06:00 Intake and Output: 11/12/18 11/12/18 06:59 18:59 Intake Total 660 Output Total 3 Balance 657 - Medications Medications: Current Medications Aspirin (Aspirin Chewable) 81 mg PO DAILY [facility] Last Admin: 11/11/18 10:40 Dose: Not Given Aspirin (Ecotrin) 81 mg PO DAILY [facility] Atorvastatin Calcium (Lipitor) 40 mg PO HS [facility] Last Admin: 11/11/18 21:54 Dose: 40 mg Guaifenesin/Dextromethorphan (Robitussin Dm) 5 ml PO Q4H PRN PRN Reason: Cough Insulin Human Regular (Humulin R Low) 0 units SC [facility]; Protocol Last Admin: 11/12/18 07:43 Dose: Not Given Lisinopril (Zestril) 40 mg PO DAILY [facility] Last Admin: 11/11/18 10:40 Dose: 40 mg Pantoprazole Sodium (Protonix Ec Tab) 40 mg PO DAILY [facility] Last Admin: 11/11/18 10:40 Dose: 40 mg Prasugrel (Effient) 10 mg PO DAILY [facility] Tamsulosin HCl (Flomax) 0.4 mg PO DAILY [facility] Last Admin: 11/11/18 10:40 Dose: 0.4 mg - Labs Labs: 11/12/18 06:30 11/12/18 06:30 PT 12.2 SECONDS (9.4-12.5) 11/09/18 10:45 INR 1.06 11/09/18 10:45 APTT 30.6 Seconds (25.1-36.5) 11/09/18 10:45 Attending/Attestation - Attestation I have personally seen and examined this patient.: Yes I have fully participated in the care of the patient.: Yes I have reviewed all pertinent clinical information, including history, physical exam and plan: Yes Notes (Text): Attending note; Patient seen and examined with resident. Status post cardiac cath. Denies any chest pain, shortness of breath. Denies any fevers, chills. Right groin site is clean. No hematoma noted. Patient is a 58 year old male with a PMHx of non-cancerous brain lesion, HTN, HLD, DM2, BPH, GERD, erectile dysfunction, depression who presented with mid- sternal and left-sided deep pressure-like chest pain. 1. chest pain; S/p cardiac cath today. cath showed 70-80% stenosis in RCA. S/p PTCA and stent placement. Pt will need to remain on aspirin indefinitely and effient. for at least a year. Pt resistant to Plavix, currently on Effient. Continue Lipitor. 2. Hypertension; continue lisinopril. 3. Diabetes; continue regular insulin sliding scale. Restart metformin tomorrow. 4. History of Non-Cancerous Brain Lesion; continue cabergoline as outpatient. Follow up with neurology/endocrinology as outpatient. Possible discharge home tomorrow. Upon discharge patient will follow up with PMD Dr Jerry Quigley in [place].
--- NOTE | 2018-11-11 20:23 | CARD ---
APPROVED REPORT Date of service: 11/11/2018 EKG Measurement Heart [id number] <Conclusion> Normal sinus rhythm Normal ECG
[2018-11-12 06:54] LABS: BASO # 0.03 K/mm3 (0.0-2.0); BASO % 0.3 % (0.0-3.0); EOS # 0.3 (0.0-0.7); EOS % 2.8 % (1.5-5.0); GRAN # 6.49 (1.4-6.5); GRAN % 64.1 % (50.0-68.0); LYMPH # 2.7 (1.2-3.4); LYMPH % 27.1 % (22.0-35.0); MEAN CELL VOLUME 90.1 fl (80.0-105.0); MEAN CORPUSCULAR HEMOGLOBIN 30.6 pg (25.0-35.0); MEAN CORPUSCULAR HGB CONC 33.9 g/dl (31.0-37.0); MEAN PLATELET VOLUME 9.8 fl (7.0-11.0); MONO # 0.6 (0.1-0.6); MONO % 5.7 % (1.0-6.0); RBC 4.25 10^6/uL (3.5-6.1); RED CELL DISTRIBUTION WIDTH 12.6 % (11.5-14.5); WHITE BLOOD COUNT 10.1 10^3/uL (4.5-11.0)
[2018-11-12 07:34] LABS: ALB/GLOB RATIO 1.4 (1.1-1.8); ALBUMIN 4.4 g/dL (3.0-4.8); ALT/SGPT 67 U/L (7-56); AST/SGOT 45 U/L (17-59); BLOOD UREA NITROGEN 13 mg/dL (7-21); CALCIUM 9.4 mg/dL (8.4-10.5); GFR NON-AFRICAN AMERICAN > 60
[2018-11-12] MEDS: Insulin Reg-LOW-Coverage SC SCH ×2 (07:43→12:48)
[2018-11-12 09:28] VITALS: O2SAT 96
[2018-11-12] MEDS: Pantoprazole 40 mg EC Tab PO SCH (09:54)
[2018-11-12] MEDS ORDERED: Influenza Vaccine 60 mcg/0.5 mL SYR (4YR UP) IM ONE (12:14)
--- NOTE | 2018-11-12 12:14 | PN ---
DATE: 11/12/2018 SUBJECTIVE: The patient underwent successful PCI to the distal RCA with drug-eluting stent and no reported groin bleeding. He denies any chest pain. OBJECTIVE: VITAL SIGNS: Blood pressure 144/88, heart rate 72, temperature 7.4, respirations 18. HEENT: Normocephalic. CHEST: Clear. HEART: S1, S2 regular. ABDOMEN: Soft. EXTREMITIES: No edema. No hematoma. LABORATORY DATA: Hemoglobin and hematocrit 13 and 38.3, white count and platelet count today are within normal limits. SMA-7 is within normal limits except for glucose of 146 and creatinine 0.7. Today's EKG revealed normal sinus rhythm at a rate of 75. ASSESSMENT: 1. Unstable angina status post percutaneous coronary intervention with drug-eluting stent to the distal right coronary artery for 70% eccentric disease of a calcified vessel. 2. Hypertension and diabetes mellitus. 3. Cannabinoid abuse. RECOMMENDATIONS: The patient will be discharged on aspirin, Effient, Lipitor and Zestril to follow up with Dr. Sohail Deleon and have Dr. Gallegos as his primary physician. Douglas Villa MD
[2018-11-12 12:34] VITALS: BP 120/93; PULSE 85; RESP 20; TEMP 98.1
--- NOTE | 2018-11-12 13:22 | CP.PCM.DIS ---
<Romina Merida - Last Filed: 11/12/18 14:01> Provider - Provider Date of Admission: 11/11/18 12:54 Attending physician: Marisa Olvera MD Consults: 11/09/18 17:23 Inpatient [facility] Core Measures Referral Routine Comment: chest pain Physician Instructions: Reason For Exam: eval Transition In Care/Readmission Reduction Routine Comment: chest pain Physician Instructions: Reason For Exam: eval 11/10/18 06:00 Cardiology Consult Routine Comment: Consulting Provider: Douglas Villa Consulting Physician: Douglas Villa Reason for Consult: Chest Pain, rule out ACS Time Spent in preparation of Discharge (in minutes): 35 Hospital Course - Lab Results Lab Results: Most Recent Lab Values WBC 10.1 10^3/uL (4.5-11.0) 11/12/18 06:30 RBC 4.25 10^6/uL (3.5-6.1) 11/12/18 06:30 Hgb 13.0 g/dL (14.0-18.0) L 11/12/18 06:30 Hct 38.3 % (42.0-52.0) L 11/12/18 06:30 MCV 90.1 fl (80.0-105.0) 11/12/18 06:30 MCH 30.6 pg (25.0-35.0) 11/12/18 06:30 MCHC 33.9 g/dl (31.0-37.0) 11/12/18 06:30 RDW 12.6 % (11.5-14.5) 11/12/18 06:30 Plt Count 255 10^3/uL (120.0-450.0) 11/12/18 06:30 MPV 9.8 fl (7.0-11.0) 11/12/18 06:30 Gran % 64.1 % (50.0-68.0) 11/12/18 06:30 Lymph % (Auto) 27.1 % (22.0-35.0) 11/12/18 06:30 [place] % (Auto) 5.7 % (1.0-6.0) 11/12/18 06:30 Eos % (Auto) 2.8 % (1.5-5.0) 11/12/18 06:30 Baso % (Auto) 0.3 % (0.0-3.0) 11/12/18 06:30 Gran # 6.49 (1.4-6.5) 11/12/18 06:30 Lymph # (Auto) 2.7 (1.2-3.4) 11/12/18 06:30 [place] # (Auto) 0.6 (0.1-0.6) 11/12/18 06:30 Eos # (Auto) 0.3 (0.0-0.7) 11/12/18 06:30 Baso # (Auto) 0.03 K/mm3 (0.0-2.0) 11/12/18 06:30 PT 12.2 SECONDS (9.4-12.5) 11/09/18 10:45 INR 1.06 11/09/18 10:45 APTT 30.6 Seconds (25.1-36.5) 11/09/18 10:45 Sodium 139 mmol/L (132-148) 11/12/18 06:30 Potassium 4.1 mmol/L (3.6-5.0) 11/12/18 06:30 Chloride 102 mmol/L (98-107) 11/12/18 06:30 Carbon Dioxide 28 mmol/L (21-33) 11/12/18 06:30 Anion Gap 13 (10-20) 11/12/18 06:30 BUN 13 mg/dL (7-21) 11/12/18 06:30 Creatinine 0.7 mg/dl (0.8-1.5) L 11/12/18 06:30 Est GFR ( Amer) > 60 11/12/18 06:30 Est GFR (Non-Af Amer) > 60 11/12/18 06:30 POC Glucose (mg/dL) 212 mg/dL (65-110) H 11/12/18 11:27 Random Glucose 146 mg/dL (70-110) H 11/12/18 06:30 Hemoglobin A1c 7.8 % (4.2-6.5) H 11/10/18 06:30 Calcium 9.4 mg/dL (8.4-10.5) 11/12/18 06:30 Magnesium 2.0 mg/dL (1.7-2.2) 11/10/18 06:30 Total Bilirubin 0.6 mg/dL (0.2-1.3) 11/12/18 06:30 AST 45 U/L (17-59) 11/12/18 06:30 ALT 67 U/L (7-56) H 11/12/18 06:30 Alkaline Phosphatase 93 U/L (38-126) 11/12/18 06:30 Lactate Dehydrogenase 569 U/L (333-699) 11/09/18 10:45 Total Creatine Kinase 116 U/L (35-230) 11/09/18 10:45 Troponin I < 0.01 ng/mL 11/09/18 23:40 NT-Pro-B Natriuret Pep 12.1 pg/mL (0-450) 11/09/18 10:45 Total Protein 7.5 g/dL (5.8-8.3) 11/12/18 06:30 Albumin 4.4 g/dL (3.0-4.8) 11/12/18 06:30 Globulin 3.1 gm/dL 11/12/18 06:30 Albumin/Globulin Ratio 1.4 (1.1-1.8) 11/12/18 06:30 Triglycerides 176 mg/dL (35-160) H 11/10/18 06:30 Cholesterol 127 mg/dL (130-200) L 11/10/18 06:30 LDL Cholesterol Direct 74 mg/dL (0-129) 11/10/18 06:30 HDL Cholesterol 31 mg/dL (29-60) 11/10/18 06:30 TSH 3rd Generation 0.93 mIU/mL (0.46-4.68) 11/10/18 06:30 Urine Color Yellow (YELLOW) 11/09/18 12:15 Urine Appearance Clear (CLEAR) 11/09/18 12:15 Urine pH 6.0 (4.7-8.0) 11/09/18 12:15 Ur Specific [place] 1.025 (1.005-1.035) 11/09/18 12:15 Urine Protein 100 mg/dL (<30 mg/dL) H 11/09/18 12:15 Urine Glucose (UA) Negative mg/dL (NEGATIVE) 11/09/18 12:15 Urine Ketones Negative mg/dL (NEGATIVE) 11/09/18 12:15 Urine Blood Moderate (NEGATIVE) H 11/09/18 12:15 Urine Nitrate Negative (NEGATIVE) 11/09/18 12:15 Urine Bilirubin Negative (NEGATIVE) 11/09/18 12:15 Urine Urobilinogen 1.0 E.U./dL (<1 E.U./dL) H 11/09/18 12:15 Ur Leukocyte Esterase Negative Yunior/uL (NEGATIVE) 11/09/18 12:15 Urine RBC 15 - 20 /hpf (0-2) H 11/09/18 12:15 Urine WBC 1 - 3 /hpf (0-6) 11/09/18 12:15 Ur Epithelial Cells None /hpf (0-5) 11/09/18 12:15 Amorphous Sediment Few /hpf (NONE) 11/09/18 12:15 Urine Bacteria Mod /hpf (NONE) 11/09/18 12:15 Urine Opiates Screen Negative (NEGATIVE) 11/09/18 13:45 Urine Methadone Screen Negative (NEGATIVE) 11/09/18 13:45 Ur Barbiturates Screen Negative (NEGATIVE) 11/09/18 13:45 Ur Phencyclidine Scrn Negative (NEGATIVE) 11/09/18 13:45 Ur Amphetamines Screen Negative (NEGATIVE) 11/09/18 13:45 U Benzodiazepines Scrn Negative (NEGATIVE) 11/09/18 13:45 U Oth Cocaine Metabols Negative (NEGATIVE) 11/09/18 13:45 U Cannabinoids Screen Positive (NEGATIVE) H 11/09/18 13:45 - Hospital Course Hospital Course: 58 year old male with a past medical history of a prolactinoma (on Cabergoline), HTN, HLD, DM2, BPH, GERD, erectile dysfunction, depression who presented with mid-sternal and left-sided chest pain that began at 7pm on 11/08/18 and was constant throughout the night. In the ED he underwent a EKG that showed NSR and troponins x 3 were negative. Cardiology was consulted and recommended a diagnostic catheterization which revealed 70-80% stenosis in the mid RCA and subsequently underwent angioplasty with SHAJI stent placement therein. The patient was found to be resistance to Clopidogrel and hence was placed on Prasurgel. He was discharged observed overnight and discharged in the morning with the below written prescriptions, instructions, and recommendations. - Date & Time of H&P Date of H&P: 11/12/18 Time of H&P: 14:03 Discharge Exam - Head Exam Head Exam: ATRAUMATIC, NORMOCEPHALIC - Eye Exam Eye Exam: EOMI, Normal appearance Pupil Exam: NORMAL ACCOMODATION - ENT Exam ENT Exam: Mucous Membranes Moist, Normal Oropharynx - Neck Exam Neck exam: Normal Inspection - Respiratory Exam Respiratory Exam: Clear to PA & Lateral, NORMAL BREATHING PATTERN - Cardiovascular Exam Cardiovascular Exam: RRR, +S1, +S2 - GI/Abdominal Exam GI & Abdominal Exam: Normal Bowel Sounds - Extremities Exam Extremities exam: normal inspection - Neurological Exam Neurological exam: Alert, CN II-XII Intact, Oriented x3 - Psychiatric Exam Psychiatric exam: Normal Affect, Normal Mood - Skin Skin Exam: Dry, Intact, Normal Color, Warm Discharge Plan - Discharge Medications Prescriptions: Aspirin [Ecotrin] 81 mg PO DAILY #30 tabec Lisinopril [Zestril] 40 mg PO DAILY #30 tab metFORMIN [glucOPHAGE] 850 mg PO BID #30 tab Prasugrel [Effient] 10 mg PO DAILY #30 tab Rosuvastatin Calcium [Crestor] 10 mg PO HS #30 tab - Follow Up Plan Condition: STABLE Disposition: HOME/ ROUTINE Instructions: Coronary Heart Disease, Heart Healthy Diet, Coronary Angioplasty (DC), Marijuana Use and Addiction, Quitting Smoking, Diabetic Meal Planning , Heart Disease in Diabetics Additional Instructions: Please follow up with your primary care doctor, Dr Jerry Quigley ([place]), within 3-5 days of discharge. You can also call your insurance company to find a primary medical doctor in [place]. Please follow up with cardiology, Dr. Deleon, within 1 week of discharge. You have been given a prescription for: 1. Aspirin 81mg DAILY (Cardiac risk reduction) 2. Crestor 10mg Daily (Cholesterol) 3. Effient 10mg Daily (This helps keep stent open) 4. Metformin 850mg ONE PILL AM AND ONE PM (For diabetes) 5. Lisinopril 40mg DAILY (For blood pressure) These medications were brought to your bedside. Continue other home medications: 1. Flomax 0.4 mg Daily 2. Omeprazole 40mg Daily 3. Elavil 20mg Daily You will need REFILLS FROM YOUR PRIMARY MEDICAL DOCTOR. Please stop using drugs such as marijuana. If your symptoms return, please go to the nearest emergency department. Diet: Heart Healthy, diabetic exchange planning Referrals: Sohail Deleon MD [Staff Provider] - <Marisa Olvera - Last Filed: 11/12/18 14:24> Provider - Provider Date of Admission: 11/11/18 12:54 Attending physician: Marisa Olvera MD Consults: 11/09/18 17:23 Inpatient [facility] Core Measures Referral Routine Comment: chest pain Physician Instructions: Reason For Exam: eval Transition In Care/Readmission Reduction Routine Comment: chest pain Physician Instructions: Reason For Exam: eval 11/10/18 06:00 Cardiology Consult Routine Comment: Consulting Provider: Douglas Villa Consulting Physician: Douglas Villa Reason for Consult: Chest Pain, rule out ACS Hospital Course - Lab Results Lab Results: Most Recent Lab Values WBC 10.1 10^3/uL (4.5-11.0) 11/12/18 06:30 RBC 4.25 10^6/uL (3.5-6.1) 11/12/18 06:30 Hgb 13.0 g/dL (14.0-18.0) L 11/12/18 06:30 Hct 38.3 % (42.0-52.0) L 11/12/18 06:30 MCV 90.1 fl (80.0-105.0) 11/12/18 06:30 MCH 30.6 pg (25.0-35.0) 11/12/18 06:30 MCHC 33.9 g/dl (31.0-37.0) 11/12/18 06:30 RDW 12.6 % (11.5-14.5) 11/12/18 06:30 Plt Count 255 10^3/uL (120.0-450.0) 11/12/18 06:30 MPV 9.8 fl (7.0-11.0) 11/12/18 06:30 Gran % 64.1 % (50.0-68.0) 11/12/18 06:30 Lymph % (Auto) 27.1 % (22.0-35.0) 11/12/18 06:30 [place] % (Auto) 5.7 % (1.0-6.0) 11/12/18 06:30 Eos % (Auto) 2.8 % (1.5-5.0) 11/12/18 06:30 Baso % (Auto) 0.3 % (0.0-3.0) 11/12/18 06:30 Gran # 6.49 (1.4-6.5) 11/12/18 06:30 Lymph # (Auto) 2.7 (1.2-3.4) 11/12/18 06:30 [place] # (Auto) 0.6 (0.1-0.6) 11/12/18 06:30 Eos # (Auto) 0.3 (0.0-0.7) 11/12/18 06:30 Baso # (Auto) 0.03 K/mm3 (0.0-2.0) 11/12/18 06:30 PT 12.2 SECONDS (9.4-12.5) 11/09/18 10:45 INR 1.06 11/09/18 10:45 APTT 30.6 Seconds (25.1-36.5) 11/09/18 10:45 Sodium 139 mmol/L (132-148) 11/12/18 06:30 Potassium 4.1 mmol/L (3.6-5.0) 11/12/18 06:30 Chloride 102 mmol/L (98-107) 11/12/18 06:30 Carbon Dioxide 28 mmol/L (21-33) 11/12/18 06:30 Anion Gap 13 (10-20) 11/12/18 06:30 BUN 13 mg/dL (7-21) 11/12/18 06:30 Creatinine 0.7 mg/dl (0.8-1.5) L 11/12/18 06:30 Est GFR ( Amer) > 60 11/12/18 06:30 Est GFR (Non-Af Amer) > 60 11/12/18 06:30 POC Glucose (mg/dL) 212 mg/dL (65-110) H 11/12/18 11:27 Random Glucose 146 mg/dL (70-110) H 11/12/18 06:30 Hemoglobin A1c 7.8 % (4.2-6.5) H 11/10/18 06:30 Calcium 9.4 mg/dL (8.4-10.5) 11/12/18 06:30 Magnesium 2.0 mg/dL (1.7-2.2) 11/10/18 06:30 Total Bilirubin 0.6 mg/dL (0.2-1.3) 11/12/18 06:30 AST 45 U/L (17-59) 11/12/18 06:30 ALT 67 U/L (7-56) H 11/12/18 06:30 Alkaline Phosphatase 93 U/L (38-126) 11/12/18 06:30 Lactate Dehydrogenase 569 U/L (333-699) 11/09/18 10:45 Total Creatine Kinase 116 U/L (35-230) 11/09/18 10:45 Troponin I < 0.01 ng/mL 11/09/18 23:40 NT-Pro-B Natriuret Pep 12.1 pg/mL (0-450) 11/09/18 10:45 Total Protein 7.5 g/dL (5.8-8.3) 11/12/18 06:30 Albumin 4.4 g/dL (3.0-4.8) 11/12/18 06:30 Globulin 3.1 gm/dL 11/12/18 06:30 Albumin/Globulin Ratio 1.4 (1.1-1.8) 11/12/18 06:30 Triglycerides 176 mg/dL (35-160) H 11/10/18 06:30 Cholesterol 127 mg/dL (130-200) L 11/10/18 06:30 LDL Cholesterol Direct 74 mg/dL (0-129) 11/10/18 06:30 HDL Cholesterol 31 mg/dL (29-60) 11/10/18 06:30 TSH 3rd Generation 0.93 mIU/mL (0.46-4.68) 11/10/18 06:30 Urine Color Yellow (YELLOW) 11/09/18 12:15 Urine Appearance Clear (CLEAR) 11/09/18 12:15 Urine pH 6.0 (4.7-8.0) 11/09/18 12:15 Ur Specific [place] 1.025 (1.005-1.035) 11/09/18 12:15 Urine Protein 100 mg/dL (<30 mg/dL) H 11/09/18 12:15 Urine Glucose (UA) Negative mg/dL (NEGATIVE) 11/09/18 12:15 Urine Ketones Negative mg/dL (NEGATIVE) 11/09/18 12:15 Urine Blood Moderate (NEGATIVE) H 11/09/18 12:15 Urine Nitrate Negative (NEGATIVE) 11/09/18 12:15 Urine Bilirubin Negative (NEGATIVE) 11/09/18 12:15 Urine Urobilinogen 1.0 E.U./dL (<1 E.U./dL) H 11/09/18 12:15 Ur Leukocyte Esterase Negative Yunior/uL (NEGATIVE) 11/09/18 12:15 Urine RBC 15 - 20 /hpf (0-2) H 11/09/18 12:15 Urine WBC 1 - 3 /hpf (0-6) 11/09/18 12:15 Ur Epithelial Cells None /hpf (0-5) 11/09/18 12:15 Amorphous Sediment Few /hpf (NONE) 11/09/18 12:15 Urine Bacteria Mod /hpf (NONE) 11/09/18 12:15 Urine Opiates Screen Negative (NEGATIVE) 11/09/18 13:45 Urine Methadone Screen Negative (NEGATIVE) 11/09/18 13:45 Ur Barbiturates Screen Negative (NEGATIVE) 11/09/18 13:45 Ur Phencyclidine Scrn Negative (NEGATIVE) 11/09/18 13:45 Ur Amphetamines Screen Negative (NEGATIVE) 11/09/18 13:45 U Benzodiazepines Scrn Negative (NEGATIVE) 11/09/18 13:45 U Oth Cocaine Metabols Negative (NEGATIVE) 11/09/18 13:45 U Cannabinoids Screen Positive (NEGATIVE) H 11/09/18 13:45 Attending/Attestation - Attestation I have personally seen and examined this patient.: Yes I have fully participated in the care of the patient.: Yes I have reviewed all pertinent clinical information, including history, physical exam and plan: Yes Notes (Text): 11/12/18 14:23 Attending note; Patient seen and examined with resident. Status post cardiac cath. Denies any chest pain, shortness of breath. Denies any fevers, chills. Right groin site is clean. No hematoma noted. Patient is a 58 year old male with a PMHx of non-cancerous brain lesion, HTN, HLD, DM2, BPH, GERD, erectile dysfunction, depression who presented with mid- sternal and left-sided deep pressure-like chest pain. 1. chest pain; S/p cardiac cath. cath showed 70-80% stenosis in RCA. S/p PTCA and stent placement. Pt will need to remain on aspirin indefinitely and effient. for at least a year. Pt resistant to Plavix, currently on Effient. Continue Lipitor. 2. Hypertension; continue lisinopril. 3. Diabetes; continue regular insulin sliding scale. Restart metformin tomorrow. medications delivered to the bed side. 4. History of Non-Cancerous Brain Lesion; continue cabergoline as outpatient. Follow up with neurology/endocrinology as outpatient. discharge today. Patient agreed to follow up with Dr. Gallegos and DR. Deleon in [place].
--- NOTE | 2018-11-12 20:08 | CARD ---
APPROVED REPORT Date of service: 11/12/2018 EKG Measurement Heart [id number] <Conclusion> Normal sinus rhythm Normal ECG
== END 2018-11-12 13:00 | disposition home or self-care (01) | DRG 247 ==
LOC: ED 10:15 → ERH 11:59 → 2RNO 14:19 → 2RSO 11-11 10:24 → OBSVTOIN 11-11 12:54
PROVIDERS: ADMIT Hospitalist; ATTEND Internal Medicine
PROC: 027034Z Dilation of Coronary Artery, One Artery with Drug-eluting Intraluminal Device, Percutaneous Approach (ICD-10-PCS; principal; 2018-11-11)
PROC: 4A023N7 Measurement of Cardiac Sampling and Pressure, Left Heart, Percutaneous Approach (ICD-10-PCS; 2018-11-11)
PROC: B2111ZZ Fluoroscopy of Multiple Coronary Arteries using Low Osmolar Contrast (ICD-10-PCS; 2018-11-11)
PROC: B2151ZZ Fluoroscopy of Left Heart using Low Osmolar Contrast (ICD-10-PCS; 2018-11-11)
DX: I25.110 Atherosclerotic heart disease of native coronary artery with unstable angina pectoris (principal); E11.9 Type 2 diabetes mellitus without complications; I10 Essential (primary) hypertension; E78.00 Pure hypercholesterolemia, unspecified; N40.0 Benign prostatic hyperplasia without lower urinary tract symptoms; N52.9 Male erectile dysfunction, unspecified; F32.9 Major depressive disorder, single episode, unspecified; F12.90 Cannabis use, unspecified, uncomplicated; K21.9 Gastro-esophageal reflux disease without esophagitis; Z82.49 Family history of ischemic heart disease and other diseases of the circulatory system